=== PATIENT | female | born 1965 | race Caucasian/White ===

== ENCOUNTER 2017-12-30 11:21 | Emergency (ER) | payer MEDICAID ==
[2017-12-30] MEDS: IBUPROFEN 800 MG TAB PO (13:30)
== END 2017-12-30 15:18 | disposition home or self-care (01) ==
LOC: FTE 11:21
DX: M25.511 Pain in right shoulder (principal); M25.521 Pain in right elbow; M25.561 Pain in right knee
CPT/HCPCS: 73030; 73030-RT; 73080-RT; 73562; 99284-25